=== PATIENT | female | born 1970 | race Caucasian/White ===

== ENCOUNTER → 2017-04-01 | Outpatient (CLI) | payer BC | LOC: BMCIMAGING 14:46 | PROVIDERS: ATTEND Obstetrics & Gynecology | DX: Z12.31 Encounter for screening mammogram for malignant neoplasm of breast (principal) | CPT/HCPCS: G0202 ==

== ENCOUNTER → 2018-05-05 | Outpatient (CLI) | payer BC | LOC: BMCIMAGING 08:48 | PROVIDERS: ATTEND Internal Medicine | DX: Z12.31 Encounter for screening mammogram for malignant neoplasm of breast (principal) ==

== ENCOUNTER → 2018-05-24 | Outpatient (CLI) | payer OTHER | LOC: BMCIMAGING 10:52 | PROVIDERS: ATTEND Internal Medicine | DX: N60.02 Solitary cyst of left breast (principal) ==

== ENCOUNTER 2018-09-10 21:28 | Emergency (ER) | payer OTHER ==
[2018-09-10 21:33] VITALS: BP 151/116
--- NOTE | 2018-09-10 21:36 | EDPHY ---
H & P Stated Complaint: RUNNING AND PULLED HAMSTRING R LEG, FELL TO GROUND NO LOC Time Seen by Provider: 09/10/18 21:34 - Personal History LMP (Females 10-55): IUD In Place Current Tetanus/Diphtheria Vaccine: Yes Current Tetanus Diphtheria and Acellular Pertussis (TDAP): Yes - Medical/Surgical History Hx Asthma: No Hx Chronic Respiratory Disease: No Hx Diabetes: No Hx Cardiac Disease: No Hx Renal Disease: No Hx Cirrhosis: No Hx Alcoholism: No Hx HIV/AIDS: No Hx Splenectomy or Spleen Trauma: No Other PMH: DENIES - Social History Smoking Status: Never smoked Constitutional: Initial Vital Signs Temperature (C) 36.8 C 09/10/18 21:29 Heart Rate 88 09/10/18 21:29 Respiratory Rate 18 09/10/18 21:29 Blood Pressure 151/116 H 09/10/18 21:29 O2 Sat (%) 97 09/10/18 21:29 O2 Delivery Mode Room Air Allergies/Adverse Reactions: No Known Allergies Allergy (Unverified 09/10/18 21:34) Home Medications: Medication Instructions Recorded Ibuprofen [Motrin] 800 mg PO Q8 #20 tab 09/10/18 oxyCODONE IR [Oxycodone Ir (*)] 5 - 10 mg PO Q6 PRN #20 tab 09/10/18 Medical Decision Making ED Course/Re-evaluation: CHIEF COMPLAINT: Pulled right hamstring HISTORY OF PRESENT ILLNESS: The patient is a 48 y/o female complaining of pain in her right hamstring after pulling it while running when she was playing kickball. After she pulled it she collapsed to the ground. She denies hitting her head or loss of consciousness. She then developed a deep pain in the back of her right home. The pain was not alleviated with Motrin and is exacerbated while walking. Due to the pain she presented to the urgent care who became concerned that she had a DVT, so they sent her to the emergency department. No fever, headache, body aches, lightheadedness, chest pain, heart palpitations, shortness of breath, cough, abdominal pain, urinary or bowel complaints, numbness, paresthesias. REVIEW OF SYSTEMS: A 10 point review of systems was performed and is negative with the exception of the elements mentioned in the history of present illness. PHYSICAL EXAM: HR, BP, O2 Sat, RR. Temp noted General Appearance: Alert, well hydrated, appropriate, and non-toxic appearing. Head: Atraumatic without scalp tenderness or obvious injury Eyes: Pupils equal, round, reactive to light and accommodation, EOMI, no trauma , no injection. Ears: Clear bilaterally, no perforation, normal landmarks Nose: Atraumatic, no rhinorrhea, clear. Throat: There is no erythema or exudates, no lesions, normal tonsils, mucus membranes moist. Neck: Supple, 2+ carotid upstroke, nontender, no lymphadenopathy. Respiratory: No retractions, no distress, no wheezes, and no accessory muscle use. Lungs are clear to auscultation bilaterally. Cardiovascular: Regular rate and rhythm, no murmurs, rubs, or gallops. Bilateral carotid, radial, dorsalis pedis, and posterior tibial pulses intact. Good capillary refill all extremities. Gastrointestinal: Abdomen is soft, nontender, non-distended, no masses, no rebound, no guarding, no peritoneal signs. Musculoskeletal: Tenderness to her right mid hamstring in the belly, unable to ambulate secondary to pain. Otherwise normal active ROM of all extremities, atraumatic. Neurological: Alert, appropriate, and interactive. The patient has normal DTRs and non-focal cranial nerves, motor, sensory, and cerebellar exam. Skin: No rashes, good turgor, no nodules on palpation. Past medical history: Denies Past surgical history: Denies Family history: Denies Social history: Lives in [place], at bedside, employed DIAGNOSTICS/PROCEDURES/CRITICAL CARE TIME: Not indicated. DIFFERENTIAL DIAGNOSIS: The differential diagnosis for the patient's leg injury included but was not limited to fracture, ligamentous injury, contusion, muscular strain. MEDICAL DECISION MAKING: The patient is a 48 y/o female presenting with a deep pain in her right hamstring after pulling it while running when she was playing kickball. She went to an urgent care who became concerned that she had a DVT. On exam she has tenderness to her right mid hamstring in the belly, unable to ambulate secondary to pain. Patient will need to follow up with an orthopedic surgeon and probably have an MRI. We will place her in a knee immobilizer and give her crutches. I also gave her OxyIR as well as a take home pack of OxyIR. Return precautions provided; patient is comfortable with this plan. Departure - Departure Disposition: Home, Routine, Self-Care Clinical Impression: Hamstring tear Condition: Good Instructions: Crutch Instructions (ED), Hamstring Injury (ED) Additional Instructions: 1. Rest, ice, elevation. 2. Follow up with an orthopedic surgeon within one week. Please call their office on Wednesday morning. You will most likely need an MRI. 3. Return to the emergency department for worsening pain, swelling, numbness, weakness or other concerns. 4. You may need a PRP (platelet rich plasma) transfusion into the injured muscle. 5. Wear the knee immobilizer until you follow up with an orthopedic surgeon. 6. Take OxyIR as prescribed in addition to Motrin. Referrals: Joanne Mendieta MD [Primary Care Provider] - As per Instructions George Wolf MD [Medical Doctor] - As per Instructions Reji Miles MD [Medical Doctor] - As per Instructions Prescriptions: Ibuprofen [Motrin] 800 mg PO Q8 #20 tab oxyCODONE IR [Oxycodone Ir (*)] 5 - 10 mg PO Q6 PRN #20 tab PRN Reason: Pain, Severe Report Scribed for: Alexx Huerta Report Scribed by: Isabel Matos Date of Report: 09/10/18 Time of Report: 21:36
[2018-09-10] MEDS ORDERED: OXYCODONE/APAP 5/325 TAB PO ONE (21:47)
[2018-09-10] MEDS ORDERED: OXYCODONE/APAP 5/325 TAB ONE (21:47)
[2018-09-10] MEDS ORDERED: OXYCODONE/APAP 5/325MG PREPACK#4 BTL TAKEHOME ONE (21:47)
== END 2018-09-10 22:11 | disposition home or self-care (01) ==
DX: S76.311A Strain of muscle, fascia and tendon of the posterior muscle group at thigh level, right thigh, initial encounter (principal); W18.49XA Other slipping, tripping and stumbling without falling, initial encounter; Y93.79 Activity, other specified sports and athletics; Y92.838 Other recreation area as the place of occurrence of the external cause
CPT/HCPCS: L1830